=== PATIENT | female | born 1940 | race Caucasian/White ===

== ENCOUNTER 2019-09-11 11:55 | Inpatient (IN) ==
[2019-09-11] MEDS ORDERED: SODIUM CHLORIDE 0.9% 1,000 ML IV STA (12:33)
[2019-09-11 12:54] LABS: Basophils % 0.1 % (0.0-0.8); Eosinophils # 0.1 10*3/uL (0.0-0.87); Eosinophils % 0.3 % (0.00-10.9); Hematocrit 35.1 VOL% (35.7-47.0); Hemoglobin 11.2 GM/DL (12.0-16.0); Immature Granulocytes % 1.6 %; Immature Granulocytes Absolute 0.33 #; Lymphocytes # 0.7 10*3/uL (1.4-4.0); Lymphocytes % 3.4 % (21.3-54.2); Mean Corpuscular HGB Conc 31.9 GM/DL (32-36); Mean Corpuscular Volume 93.6 FL (87-102); Mean Platelet Volume 9.9 FL (9.6-12.0); Monocytes % 25.9 % (1.7-12.7); Neutrophils % 68.7 % (38.7-73.9); Platelet Count 219 T/CUMM (130-400); Red Blood Count 3.75 MC/CUMM (3.8-5.5); Red Cell Distribution Width 12.7 % (9.3-17.3); White Blood Count 20.8 T/CUMM (4-12)
[2019-09-11 12:57] LABS: Apearance,Urine CLEAR (Clear); Bilirubin,Urine Negative (Negative); Blood, Urine Negative (Negative); Glucose,Urine (UA) Negative (Negative); Hyaline Casts,Urine 3 /LPF (0-3); Ketones,Urine Negative (Negative); Nitrite,Urine Negative (Negative); Protein,Urine 30 MG/DL; RBC,Urine 4 /HPF (0-4); Urine Color Yellow (Yellow); Urine Urobilinogen < 2.0 EU/DL (0.2-1.0); WBC,Urine 1 /HPF (0-6)
[2019-09-11 13:06] LABS: Bilirubin,Total 0.8 MG/DL (0.2-1.0); Calcium 9.9 MG/DL (8.5-10.1); Osmolality,Calculated 267.4 MOS/KG (273-304); Total Protein 7.9 G/DL (6.4-8.3)
[2019-09-11 13:15] LABS: Lymphocytes 3 % (20-55); Platelet Estimate Normal; Segmented Neutrophils 69 % (50-85); Total Cells Counted 100
[2019-09-11 13:16] LABS: Ovalocytes Few; Tear Drop Cells Slight
[2019-09-11] MEDS ORDERED: ONDANSETRON 4 MG/2 ML VIAL IV PRN (14:17)
[2019-09-11] MEDS: SODIUM CHLORIDE 0.9% 1,000 ML IV SCH (17:31)
[2019-09-11] MEDS: SUCRALFATE 1 GM TABLET PO SCH ×2 (17:32→21:21)
[2019-09-11] MEDS: GABAPENTIN 100 MG CAPSULE PO SCH (21:22)
[2019-09-11] MEDS: ZALEPLON 5 MG CAPSULE PO SCH (21:22)
[2019-09-11] MEDS: DOCUSATE SODIUM 100 MG CAPSULE PO SCH (21:22)
[2019-09-11] MEDS: PROPRANOLOL 10 MG TABLET PO SCH (21:23)
[2019-09-12] MEDS: SODIUM CHLORIDE 0.9% 1,000 ML IV SCH ×2 (01:34→10:24)
[2019-09-12 05:54] LABS: Basophils % 0.1 % (0.0-0.8); Eosinophils % 0.1 % (0.00-10.9); Hemoglobin 8.9 GM/DL (12.0-16.0); Immature Granulocytes Absolute 0.25 #; Lymphocytes % 7.9 % (21.3-54.2); Mean Corpuscular HGB Conc 31.8 GM/DL (32-36); Mean Corpuscular Volume 93.3 FL (87-102); Mean Platelet Volume 9.8 FL (9.6-12.0); Monocytes % 18.5 % (1.7-12.7); Neutrophils % 72.4 % (38.7-73.9); Platelet Count 186 T/CUMM (130-400); Red Cell Distribution Width 13.1 % (9.3-17.3)
[2019-09-12 06:22] LABS: Albumin 2.8 G/DL (3.4-5.0); Bilirubin,Total 0.9 MG/DL (0.2-1.0); Calcium 8.5 MG/DL (8.5-10.1); Risk Ratio 2.07; Thyroid Stimulating Hormone 3.41 uIU/ml (0.358-3.74); Total Protein 6.1 G/DL (6.4-8.3); VLDL CHOLESTEROL 7.2 MG/DL
[2019-09-12 06:40] LABS: Hypochromasia 1+; Lymphocytes 12 % (20-55); Platelet Estimate Adequate; Segmented Neutrophils 70 % (50-85); Total Cells Counted 100
[2019-09-12] MEDS: PANTOPRAZOLE 40 MG VIAL IV SCH (08:48)
[2019-09-12] MEDS: MULTIVITAMIN (OCUVITE) TABLET PO SCH (08:50)
[2019-09-12] MEDS: GABAPENTIN 100 MG CAPSULE PO SCH ×2 (08:50→21:29)
[2019-09-12] MEDS: DOCUSATE SODIUM 100 MG CAPSULE PO SCH ×2 (08:50→21:29)
[2019-09-12] MEDS: SUCRALFATE 1 GM TABLET PO SCH ×4 (08:50→21:29)
[2019-09-12] MEDS: MULTIVITAMIN (CENTRUM) TABLET PO SCH (08:50)
[2019-09-12] MEDS: PROPRANOLOL 10 MG TABLET PO SCH (08:50)
[2019-09-12] MEDS: MAGNESIUM SULF RIDER 2 GM in PREMIX 1 EACH IV PRN (08:51)
[2019-09-12] MEDS ORDERED: MAGNESIUM SULF INJ 2 GM in SODIUM CHLORIDE 0.45% 1,000 ML IV SCH (16:00)
[2019-09-12] MEDS: ACETAMINOPHEN 325 MG TABLET PO PRN ×2 (16:21→23:55)
[2019-09-12] MEDS: cefTRIAXone 1,000 MG in SYRINGE 1 EACH IV SCH (16:26)
[2019-09-12] MEDS ORDERED: FUROSEMIDE 20 MG/2 ML VIAL IV ONE (19:28)
[2019-09-12] MEDS ORDERED: METOPROLOL TARTRATE 25 MG TABLET PO ONE (20:14)
[2019-09-12] MEDS: ZALEPLON 5 MG CAPSULE PO SCH (21:30)
[2019-09-13] MEDS: BENZONATATE 100 MG CAPSULE PO PRN ×4 (00:54→20:36)
[2019-09-13 06:19] LABS: Basophils % 0.1 % (0.0-0.8); Eosinophils # 0.1 10*3/uL (0.0-0.87); Eosinophils % 0.4 % (0.00-10.9); Hematocrit 28.9 VOL% (35.7-47.0); Hemoglobin 9.1 GM/DL (12.0-16.0); Immature Granulocytes % 1.5 %; Immature Granulocytes Absolute 0.31 #; Lymphocytes # 1.7 10*3/uL (1.4-4.0); Lymphocytes % 8.3 % (21.3-54.2); Mean Corpuscular HGB Conc 31.5 GM/DL (32-36); Mean Corpuscular Volume 94.4 FL (87-102); Mean Platelet Volume 10.1 FL (9.6-12.0); Monocytes % 16.1 % (1.7-12.7); Neutrophils % 73.6 % (38.7-73.9); Platelet Count 168 T/CUMM (130-400); Red Blood Count 3.06 MC/CUMM (3.8-5.5); Red Cell Distribution Width 12.9 % (9.3-17.3); White Blood Count 20.6 T/CUMM (4-12)
[2019-09-13 06:39] LABS: Bilirubin,Total 0.8 MG/DL (0.2-1.0); Calcium 8.8 MG/DL (8.5-10.1); Osmolality,Calculated 270.2 MOS/KG (273-304); Total Protein 6.6 G/DL (6.4-8.3)
[2019-09-13] MEDS: GABAPENTIN 100 MG CAPSULE PO SCH ×2 (08:52→20:36)
[2019-09-13] MEDS: MULTIVITAMIN (CENTRUM) TABLET PO SCH (08:52)
[2019-09-13] MEDS: MULTIVITAMIN (OCUVITE) TABLET PO SCH (08:52)
[2019-09-13] MEDS: SUCRALFATE 1 GM TABLET PO SCH ×4 (08:52→20:36)
[2019-09-13] MEDS: DOCUSATE SODIUM 100 MG CAPSULE PO SCH ×2 (08:52→20:36)
[2019-09-13] MEDS: PANTOPRAZOLE 40 MG VIAL IV SCH (08:54)
[2019-09-13] MEDS: MAGNESIUM SULF RIDER 2 GM in PREMIX 1 EACH IV PRN (09:03)
[2019-09-13 09:12] LABS: Band Neutrophils 1 % (0-10); Lymphocytes 4 % (20-55); Segmented Neutrophils 85 % (50-85); Total Cells Counted 100
[2019-09-13 09:13] LABS: Atypical Lymphocytes Few; Ovalocytes Few; Platelet Estimate Adequate; Polychromasia Slight
[2019-09-13] MEDS: METOPROLOL TARTRATE 25 MG TABLET PO SCH ×2 (11:29→20:36)
[2019-09-13] MEDS: ACETAMINOPHEN 325 MG TABLET PO PRN (16:44)
[2019-09-13] MEDS: cefTRIAXone 1,000 MG in SYRINGE 1 EACH IV SCH (16:46)
[2019-09-13] MEDS: ZALEPLON 5 MG CAPSULE PO SCH (20:37)
[2019-09-14] MEDS: ACETAMINOPHEN 325 MG TABLET PO PRN ×2 (00:14→11:04)
[2019-09-14] MEDS: BENZONATATE 100 MG CAPSULE PO PRN ×2 (05:16→21:37)
[2019-09-14 06:49] LABS: Basophils % 0.2 % (0.0-0.8); Eosinophils # 0.3 10*3/uL (0.0-0.87); Eosinophils % 2.5 % (0.00-10.9); Hematocrit 28.7 VOL% (35.7-47.0); Hemoglobin 9.5 GM/DL (12.0-16.0); Immature Granulocytes % 1.2 %; Immature Granulocytes Absolute 0.12 #; Lymphocytes # 1.4 10*3/uL (1.4-4.0); Lymphocytes % 13.7 % (21.3-54.2); Mean Corpuscular HGB Conc 33.1 GM/DL (32-36); Mean Platelet Volume 10.5 FL (9.6-12.0); Monocytes % 16.5 % (1.7-12.7); Neutrophils % 65.9 % (38.7-73.9); Platelet Count 175 T/CUMM (130-400); Red Blood Count 3.19 MC/CUMM (3.8-5.5); Red Cell Distribution Width 12.9 % (9.3-17.3); White Blood Count 10.1 T/CUMM (4-12)
[2019-09-14 07:15] LABS: Calcium 9.2 MG/DL (8.5-10.1); Osmolality,Calculated 270.1 MOS/KG (273-304)
[2019-09-14] MEDS: MULTIVITAMIN (OCUVITE) TABLET PO SCH (08:27)
[2019-09-14] MEDS: METOPROLOL TARTRATE 25 MG TABLET PO SCH ×2 (08:27→21:36)
[2019-09-14] MEDS: DOCUSATE SODIUM 100 MG CAPSULE PO SCH ×2 (08:27→21:36)
[2019-09-14] MEDS: MULTIVITAMIN (CENTRUM) TABLET PO SCH (08:27)
[2019-09-14] MEDS: SUCRALFATE 1 GM TABLET PO SCH ×4 (08:27→21:36)
[2019-09-14] MEDS: GABAPENTIN 100 MG CAPSULE PO SCH ×2 (08:27→21:37)
[2019-09-14] MEDS: PANTOPRAZOLE 40 MG VIAL IV SCH (08:28)
[2019-09-14 10:02] LABS: Band Neutrophils 2 % (0-10); Eosinophils 2 % (0-10); Lymphocytes 3 % (20-55); Segmented Neutrophils 85 % (50-85); Total Cells Counted 100
[2019-09-14 10:03] LABS: Burr Cells Slight; Elliptocytes Few; Hypochromasia 1+; Platelet Estimate Adequate; Polychromasia Slight
[2019-09-14] MEDS: cefTRIAXone 1,000 MG in SYRINGE 1 EACH IV SCH (15:59)
[2019-09-14] MEDS: SODIUM CHLORIDE 0.9% 1,000 ML IV SCH (20:58)
[2019-09-14] MEDS: ZALEPLON 5 MG CAPSULE PO SCH (21:36)
[2019-09-15 05:56] LABS: Calcium 9.3 MG/DL (8.5-10.1); Osmolality,Calculated 271.8 MOS/KG (273-304)
[2019-09-15] MEDS: PANTOPRAZOLE 40 MG VIAL IV SCH (09:07)
[2019-09-15] MEDS: DOCUSATE SODIUM 100 MG CAPSULE PO SCH ×2 (09:08→20:49)
[2019-09-15] MEDS: MULTIVITAMIN (CENTRUM) TABLET PO SCH (09:08)
[2019-09-15] MEDS: MULTIVITAMIN (OCUVITE) TABLET PO SCH (09:08)
[2019-09-15] MEDS: SUCRALFATE 1 GM TABLET PO SCH ×4 (09:08→20:49)
[2019-09-15] MEDS: GABAPENTIN 100 MG CAPSULE PO SCH ×2 (09:08→20:49)
[2019-09-15] MEDS: METOPROLOL TARTRATE 25 MG TABLET PO SCH ×2 (09:09→20:49)
[2019-09-15] MEDS: FUROSEMIDE 20 MG TABLET PO SCH (09:09)
[2019-09-15] MEDS: ACETAMINOPHEN 325 MG TABLET PO PRN ×2 (09:13→15:10)
[2019-09-15] MEDS: cefTRIAXone 1,000 MG in SYRINGE 1 EACH IV SCH (15:10)
[2019-09-15] MEDS: ZALEPLON 5 MG CAPSULE PO SCH (20:50)
[2019-09-16 08:25] VITALS: BP 138/59
[2019-09-16] MEDS: PANTOPRAZOLE 40 MG VIAL IV SCH (08:25)
[2019-09-16] MEDS: MULTIVITAMIN (CENTRUM) TABLET PO SCH (08:27)
[2019-09-16] MEDS: SUCRALFATE 1 GM TABLET PO SCH ×2 (08:27→11:44)
[2019-09-16] MEDS: FUROSEMIDE 20 MG TABLET PO SCH (08:27)
[2019-09-16] MEDS: GABAPENTIN 100 MG CAPSULE PO SCH (08:28)
[2019-09-16] MEDS: DOCUSATE SODIUM 100 MG CAPSULE PO SCH (08:28)
[2019-09-16] MEDS: METOPROLOL TARTRATE 25 MG TABLET PO SCH (08:28)
[2019-09-16] MEDS: MULTIVITAMIN (OCUVITE) TABLET PO SCH (08:28)
== END 2019-09-16 12:10 | disposition home health service (06) | DRG 312 ==
LOC: EDUNIT# → EDBD → N.ED 11:55 → N.EDINP 14:16 → N.TELEN 16:34
PROVIDERS: ADMIT Family Medicine; ATTEND Family Medicine

== ENCOUNTER 2021-09-25 16:37 | Inpatient (IN) ==
[2021-09-25] MEDS ORDERED: SODIUM CHLORIDE 0.9% 1,000 ML IV STA ×2 (17:32→19:25)
[2021-09-25 18:53] LABS: Basophils % 0.3 % (0.0-0.8); Eosinophils # 0.1 10*3/uL (0.0-0.87); Eosinophils % 0.7 % (0.00-10.9); Hematocrit 24.5 VOL% (35.7-47.0); Hemoglobin 7.7 GM/DL (12.0-16.0); Immature Granulocytes % 0.6 %; Immature Granulocytes Absolute 0.06 #; Lymphocytes # 2.7 10*3/uL (1.4-4.0); Lymphocytes % 28.9 % (21.3-54.2); Mean Corpuscular HGB Conc 31.4 GM/DL (32-36); Mean Corpuscular Volume 90.1 FL (87-102); Mean Platelet Volume 10.8 FL (9.6-12.0); Monocytes % 17.8 % (1.7-12.7); Neutrophils % 51.7 % (38.7-73.9); Platelet Count 265 T/CUMM (130-400); Red Blood Count 2.72 MC/CUMM (3.8-5.5); Red Cell Distribution Width 12.3 % (9.3-17.3); White Blood Count 9.4 T/CUMM (4-12)
[2021-09-25 18:54] LABS: Alanine Aminotransferase 18 U/L (13-56); Albumin 3.1 G/DL (3.4-5.0); Alkaline Phosphatase 87 U/L (45-117); Aspartate Amino Transferase 21 U/L (0-37); Bilirubin,Total < 0.39 MG/DL (0.20-1.00); Blood Urea Nitrogen 63 MG/DL (7-18); Calcium 9.5 MG/DL (8.5-10.1); Carbon Dioxide 28 MMOL/L (21-32); Estimated Glom Filtration Rate 21 ML/MIN; Glucose 93 MG/DL (74-106); Osmolality,Calculated 287.1 MOS/KG (273-304); Partial Thromboplastin Time 23.1 SECS (23.8-32.1); Potassium 4.6 MMOL/L (3.5-5.1); Sodium 135 MMOL/L (136-145); Total Protein 6.6 G/DL (6.4-8.2)
[2021-09-25] MEDS ORDERED: ONDANSETRON 4 MG/2 ML VIAL IV STA (19:18)
[2021-09-25] MEDS ORDERED: ONDANSETRON 4 MG/2 ML VIAL ONE (19:19)
[2021-09-25] MEDS ORDERED: PANTOPRAZOLE 40 MG VIAL IV STA (19:22)
[2021-09-25] MEDS ORDERED: OCTREOTIDE 100 MCG/ML SYRINGE IV STA (19:24)
[2021-09-25] MEDS ORDERED: LORazepam 2 MG/1 ML VIAL IV STA (19:25)
[2021-09-25] MEDS ORDERED: DILTIAZEM 50 MG/10 ML VIAL IV STA (19:27)
[2021-09-25] MEDS ORDERED: OCTREOTIDE 100 MCG/ML SYRINGE SUBCUT STA (19:34)
[2021-09-25] MEDS ORDERED: SODIUM CHLORIDE 0.9% 1,000 ML IV PRN (19:48)
[2021-09-25] MEDS ORDERED: HYDROmorphone 2 MG/1 ML VIAL IV PRN (19:50)
[2021-09-25] MEDS ORDERED: ONDANSETRON 4 MG/2 ML VIAL IV PRN (19:50)
[2021-09-25] MEDS ORDERED: ACETAMINOPHEN 325 MG TABLET PO PRN (19:50)
[2021-09-25 20:06] LABS: Anisocytosis 1+; Band Neutrophils 3 % (0-10); Eosinophils 1 % (0-10); Hypochromia 1+; Lymphocytes 29 % (20-55); Segmented Neutrophils 51 % (50-85); Total Cells Counted 100
[2021-09-25 20:07] LABS: Atypical Lymphocytes 2+; Microcytosis 1+; Platelet Estimate Adequate; Toxic Granulation 1+
[2021-09-25] MEDS: PANTOPRAZOLE INJ 200 MG in SODIUM CHLORIDE 0.9% 250 ML IV SCH (20:44)
[2021-09-25] MEDS: OCTREOTIDE 500 MCG in SODIUM CHLORIDE 0.9% 100 ML IV SCH (20:45)
[2021-09-25 23:44] LABS: Hematocrit 18.7 VOL% (35.7-47.0)
[2021-09-26 00:07] LABS: Hemoglobin 5.7 GM/DL (12.0-16.0)
[2021-09-26] MEDS: DEXTROSE 5% NACL 0.45% 1,000 ML IV SCH ×3 (02:10→15:30)
[2021-09-26] MEDS ORDERED: SODIUM CHLORIDE 0.9% 1,000 ML IV PRN (05:20)
[2021-09-26 08:14] LABS: Hyaline Casts,Urine 3 /LPF (0-3); RBC,Urine 3 /HPF (0-4)
[2021-09-26 08:15] LABS: Bilirubin,Urine Negative (Negative); Blood, Urine Trace mg/dL (Negative); Glucose,Urine (UA) Negative (Negative); Ketones,Urine Negative (Negative); Nitrite,Urine Negative (Negative); Protein,Urine Negative (Negative); Urine Appearance Clear (Clear); Urine Color Yellow (Yellow); Urine Urobilinogen 0.2 eU/dL (<2.0); Urine pH 5.5 (4.5-8.0)
[2021-09-26] MEDS: PANTOPRAZOLE 40 MG VIAL IV SCH ×2 (09:29→22:30)
[2021-09-26] MEDS: LACTATED RINGERS 1,000 ML IV SCH (13:16)
[2021-09-26] MEDS ORDERED: propofoL 200 MG/20 ML VIAL IV ONE (14:01)
[2021-09-26] MEDS ORDERED: LIDOCAINE 2% 5 ML VIAL ONE (14:01)
[2021-09-26 15:42] LABS: Hematocrit 24.1 VOL% (35.7-47.0); Hemoglobin 7.9 GM/DL (12.0-16.0)
[2021-09-26] MEDS: OCTREOTIDE 500 MCG in SODIUM CHLORIDE 0.9% 100 ML IV SCH (19:38)
[2021-09-26] MEDS: PANTOPRAZOLE INJ 200 MG in SODIUM CHLORIDE 0.9% 250 ML IV SCH (20:47)
[2021-09-26 21:43] LABS: Hematocrit 28.7 VOL% (35.7-47.0); Hemoglobin 9.2 GM/DL (12.0-16.0)
[2021-09-27 03:42] LABS: Hematocrit 26.6 VOL% (35.7-47.0); Hemoglobin 8.6 GM/DL (12.0-16.0)
[2021-09-27] MEDS ORDERED: SODIUM CHLORIDE 0.9% 500 ML IV ONE ×2 (03:53→05:29)
[2021-09-27] MEDS ORDERED: SODIUM CHLORIDE 0.9% 1,000 ML IV SCH (04:00)
[2021-09-27 05:55] LABS: Basophils % 0.1 % (0.0-0.8); Eosinophils # 0.1 10*3/uL (0.0-0.87); Eosinophils % 0.4 % (0.00-10.9); Hematocrit 21.1 VOL% (35.7-47.0); Hemoglobin 6.7 GM/DL (12.0-16.0); Immature Granulocytes % 1.8 %; Immature Granulocytes Absolute 0.32 #; Lymphocytes # 2.9 10*3/uL (1.4-4.0); Lymphocytes % 16.6 % (21.3-54.2); Mean Corpuscular HGB Conc 31.8 GM/DL (32-36); Mean Corpuscular Volume 91.3 FL (87-102); Monocytes % 19.6 % (1.7-12.7); Neutrophils % 61.5 % (38.7-73.9); Platelet Count 185 T/CUMM (130-400); Red Blood Count 2.31 MC/CUMM (3.8-5.5); Red Cell Distribution Width 13.5 % (9.3-17.3); White Blood Count 17.6 T/CUMM (4-12)
[2021-09-27] MEDS ORDERED: PHENYLEPHRINE DRIP 40 MG/250 ML PREMIX IV ONE (06:03)
[2021-09-27] MEDS ORDERED: PHENYLEPHRINE DRIP 40 MG/250 ML PREMIX IV PRN (06:04)
[2021-09-27 06:19] LABS: Band Neutrophils 2 % (0-10); Hypochromia 1+; Lymphocytes 25 % (20-55); Microcytosis 1+; Platelet Estimate Adequate; Segmented Neutrophils 54 % (50-85); Total Cells Counted 100
[2021-09-27 06:20] LABS: Ovalocytes Few
[2021-09-27] MEDS ORDERED: MIDAZOLAM 2 MG/2 ML VIAL ONE ×2 (06:23→10:21)
[2021-09-27] MEDS ORDERED: fentaNYL 100 MCG/2 ML VIAL ONE (06:23)
[2021-09-27] MEDS ORDERED: ePHEDrine 50 MG/ML VIAL ONE (06:30)
[2021-09-27] MEDS ORDERED: ROCURONIUM 50 MG/5 ML VIAL IV ONE ×2 (06:46→07:08)
[2021-09-27] MEDS ORDERED: SUCCINYLCHOLINE 200 MG/10 ML VIAL ONE (06:47)
[2021-09-27] MEDS: DEXTROSE 5% NACL 0.45% 1,000 ML IV SCH ×3 (06:53→18:21)
[2021-09-27] MEDS ORDERED: CALCIUM CHLORIDE 1,000 MG/10 ML VIAL IV ONE (07:00)
[2021-09-27] MEDS ORDERED: ETOMIDATE 40 MG/20 ML VIAL IV ONE (07:00)
[2021-09-27] MEDS ORDERED: SODIUM CHLORIDE 0.9% 1,000 ML IV PRN (07:04)
[2021-09-27] MEDS ORDERED: EPINEPHrine 1 MG/ML VIAL ONE (07:20)
[2021-09-27] MEDS ORDERED: HEPARIN/NACL 0.9% 2 UNITS/ML 1,000 UNIT/500 ML BAG IV ONE (07:39)
[2021-09-27] MEDS ORDERED: ALBUMIN 5% 12.5 GM/250 ML VIAL IV ONE (07:40)
[2021-09-27] MEDS ORDERED: HEPARIN/NACL 0.9% 2 UNITS/ML 4,000 UNIT/2,000 ML BAG IV ONE (07:42)
[2021-09-27] MEDS ORDERED: HYDROmorphone 1 MG/1 ML SYRINGE IV PRN (08:00)
[2021-09-27 08:09] LABS: ABG Base Excess -13.3 MMOL/L (-2.5-2.5); ABG HCO3 18.7 MMOL/L (20-26); ABG Oxygen Saturation 96.3 % (95-100); ABG PO2 118.5 MM HG (80-95); ABG TCO2 21.1 MMOL/L (23-27); Glucose Heart Surgery 363 MG/DL (74-106); Hemoglobin Heart Surgery 12.4 G/DL (12.0-16.0); Potassium Heart/CVR 3.2 MMOL/L (3.5-5.1)
[2021-09-27 08:12] LABS: ABG PCO2 76.4 MM HG (35-48); ABG PH 7.007 (7.35-7.45)
[2021-09-27] MEDS ORDERED: HEPARIN/NACL 0.9% 2 UNITS/ML 2,000 UNIT/1,000 ML BAG IV ONE (08:16)
[2021-09-27] MEDS ORDERED: LIDOCAINE 2% 5 ML VIAL ONE (09:32)
[2021-09-27] MEDS ORDERED: propofoL 200 MG/20 ML VIAL IV ONE (09:32)
[2021-09-27] MEDS: LACTATED RINGERS 1,000 ML IV SCH ×6 (09:56→23:26)
[2021-09-27] MEDS: PANTOPRAZOLE INJ 200 MG in SODIUM CHLORIDE 0.9% 250 ML IV SCH ×2 (10:00→20:21)
[2021-09-27] MEDS: OCTREOTIDE 500 MCG in SODIUM CHLORIDE 0.9% 100 ML IV SCH ×2 (10:00→12:30)
[2021-09-27] MEDS ORDERED: MIDAZOLAM 2 MG/2 ML VIAL IV ONE (10:23)
[2021-09-27] MEDS ORDERED: SODIUM BICARBONATE 50 MEQ/50 ML VIAL IV ONE ×4 (10:38→19:58)
[2021-09-27] MEDS ORDERED: SODIUM BICARBONATE 50 MEQ/50 ML SYRINGE IV ONE (10:38)
[2021-09-27] MEDS ORDERED: MIDAZOLAM 100 MG in SODIUM CHLORIDE 0.9% 80 ML IV PRN (11:00)
[2021-09-27 11:04] LABS: ABG Base Excess 4.6 MMOL/L (-2.5-2.5); ABG HCO3 28.6 MMOL/L (20-26); ABG Oxygen Saturation 98.8 % (95-100); ABG PH 7.266 (7.35-7.45); ABG TCO2 31.1 MMOL/L (23-27)
[2021-09-27 11:06] LABS: ABG PCO2 76.4 MM HG (35-48)
[2021-09-27 11:08] LABS: Hematocrit 37.9 VOL% (35.7-47.0); Hemoglobin 12.6 GM/DL (12.0-16.0)
[2021-09-27 11:09] LABS: INR 1.5; PT Patient Result 16.5 SECS (10.5-12.0); Partial Thromboplastin Time 43.7 SECS (23.8-32.1)
[2021-09-27] MEDS ORDERED: CALCIUM GLUCONATE RIDER 1,000 MG/50 ML PREMIX IV ONE ×2 (11:15→18:32)
[2021-09-27 11:21] LABS: Bilirubin,Total 0.6 MG/DL (0.20-1.00); Calcium 7.3 MG/DL (8.5-10.1); Osmolality,Calculated 321.3 MOS/KG (273-304); Potassium 2.9 MMOL/L (3.5-5.1); Total Protein 3.8 G/DL (6.4-8.2)
[2021-09-27] MEDS ORDERED: POTASSIUM CHLORIDE RIDER 10 MEQ/100 ML PREMIX IV ONE ×2 (11:52→16:00)
[2021-09-27] MEDS ORDERED: MAGNESIUM SULF RIDER 4 GM/100 ML PREMIX IV PRN (11:53)
[2021-09-27] MEDS: PHENYLEPHRINE DRIP 40 MG/250 ML PREMIX IV PRN ×3 (12:15→20:07)
[2021-09-27] MEDS: POTASSIUM CHLORIDE RIDER 20 MEQ/100 ML PREMIX IV PRN ×2 (12:16→15:31)
[2021-09-27] MEDS ORDERED: LACTATED RINGERS 500 ML IV ONE ×4 (12:57→23:30)
[2021-09-27 13:54] LABS: ABG HCO3 21.1 MMOL/L (20-26); ABG Oxygen Saturation 95.1 % (95-100); ABG PCO2 55.6 MM HG (35-48); ABG PH 7.251 (7.35-7.45); ABG PO2 86.8 MM HG (80-95); ABG TCO2 21.6 MMOL/L (23-27)
[2021-09-27 16:46] LABS: ABG Base Excess 0.6 MMOL/L (-2.5-2.5); ABG HCO3 24.9 MMOL/L (20-26); ABG Oxygen Saturation 94.1 % (95-100); ABG PCO2 56.6 MM HG (35-48); ABG PH 7.306 (7.35-7.45); ABG PO2 74.9 MM HG (80-95); ABG TCO2 25.3 MMOL/L (23-27); Glucose Heart Surgery 269 MG/DL (74-106); Hematocrit Heart Surgery 37.5 PERCENT (37-47); Hemoglobin Heart Surgery 12.2 G/DL (12.0-16.0); Potassium Heart/CVR 3.8 MMOL/L (3.5-5.1)
[2021-09-27 17:36] LABS: ABG Base Excess -1.4 MMOL/L (-2.5-2.5); ABG HCO3 23.1 MMOL/L (20-26); ABG Oxygen Saturation 89.8 % (95-100); ABG PCO2 47.5 MM HG (35-48); ABG PH 7.329 (7.35-7.45); ABG PO2 59.1 MM HG (80-95); ABG TCO2 22.3 MMOL/L (23-27)
[2021-09-27] MEDS ORDERED: ALBUMIN 25% 25 GM/100 ML VIAL IV ONE ×2 (17:47→21:00)
[2021-09-27 17:49] LABS: Calcium 7.4 MG/DL (8.5-10.1); Osmolality,Calculated 305.7 MOS/KG (273-304); Potassium 3.9 MMOL/L (3.5-5.1)
[2021-09-27] MEDS: INSULIN LISPRO 100 UNIT/ML SUBCUT SCH ×2 (19:09→23:54)
[2021-09-27 19:17] VITALS: BP 98/50
[2021-09-27] MEDS ORDERED: PHENYLEPHRINE INJ 160 MG in SODIUM CHLORIDE 0.9% 234 ML IV PRN (19:32)
[2021-09-27 20:14] LABS: Hematocrit 32.9 VOL% (35.7-47.0); Hemoglobin 10.9 GM/DL (12.0-16.0); Immature Granulocytes % 0.4 %; Immature Granulocytes Absolute 0.01 #; Lymphocytes # 0.2 10*3/uL (1.4-4.0); Lymphocytes % 8.8 % (21.3-54.2); Mean Corpuscular HGB Conc 33.1 GM/DL (32-36); Mean Corpuscular Volume 87.7 FL (87-102); Mean Platelet Volume 12.4 FL (9.6-12.0); Neutrophils % 82.8 % (38.7-73.9); Platelet Count 40 T/CUMM (130-400); Red Blood Count 3.75 MC/CUMM (3.8-5.5); Red Cell Distribution Width 15.8 % (9.3-17.3); White Blood Count 2.3 T/CUMM (4-12)
[2021-09-27 20:32] LABS: ABG Base Excess 1.4 MMOL/L (-2.5-2.5); ABG HCO3 25.9 MMOL/L (20-26); ABG Oxygen Saturation 92.9 % (95-100); ABG PCO2 40.9 MM HG (35-48); ABG PO2 65.2 MM HG (80-95); ABG TCO2 27.2 MMOL/L (23-27); Glucose Heart Surgery 165 MG/DL (74-106); Hemoglobin Heart Surgery 10.8 G/DL (12.0-16.0); Potassium Heart/CVR 3.1 MMOL/L (3.5-5.1)
[2021-09-27 20:44] LABS: Band Neutrophils 2 % (0-10); Lymphocytes 9 % (20-55); Metamyelocytes 1 %; Myelocytes 2 %; Platelet Estimate Decreased; Segmented Neutrophils 80 % (50-85); Total Cells Counted 100
[2021-09-27] MEDS ORDERED: NOREPINEPHRINE 4 MG/4 ML VIAL IV ONE (20:57)
[2021-09-27] MEDS: NOREPINEPHRINE 8 MG in SODIUM CHLORIDE 0.9% 242 ML IV PRN (20:59)
[2021-09-27] MEDS ORDERED: NOREPINEPHRINE 16 MG in SODIUM CHLORIDE 0.9% 234 ML IV PRN (23:35)
[2021-09-28 00:08] LABS: ABG Base Excess 0.7 MMOL/L (-2.5-2.5); ABG Oxygen Saturation 97.5 % (95-100); ABG PCO2 43.2 MM HG (35-48); ABG PH 7.385 (7.35-7.45); ABG PO2 95.6 MM HG (80-95); ABG TCO2 23.4 MMOL/L (23-27); Glucose Heart Surgery 84 MG/DL (74-106); Hematocrit Heart Surgery 32.3 PERCENT (37-47); Hemoglobin Heart Surgery 10.5 G/DL (12.0-16.0); Potassium Heart/CVR 2.9 MMOL/L (3.5-5.1)
[2021-09-28] MEDS: NOREPINEPHRINE 8 MG in SODIUM CHLORIDE 0.9% 242 ML IV PRN (01:01)
[2021-09-28] MEDS ORDERED: LORazepam 2 MG/1 ML VIAL IV PRN (01:14)
[2021-09-28] MEDS ORDERED: LORazepam 2 MG/1 ML VIAL ONE (01:18)
[2021-09-28] MEDS ORDERED: SODIUM BICARBONATE 50 MEQ/50 ML VIAL IV ONE (01:22)
[2021-09-28] MEDS: POTASSIUM CHLORIDE RIDER 20 MEQ/100 ML PREMIX IV PRN ×2 (02:02)
[2021-09-28] MEDS: LACTATED RINGERS 1,000 ML IV SCH (03:52)
== END 2021-09-28 02:55 | disposition expired | DRG 356 ==
LOC: N.ED 16:37 → SUATTDRO 19:50 → N.TELEN 19:50 → N.CC 09-27 05:24
PROVIDERS: ADMIT Family Medicine; ATTEND Internal Medicine